=== PATIENT | male | born 1970 | race American Indian/Alaskan Native ===

== ENCOUNTER 2019-06-04 20:20 | Emergency (ER) | payer OTHER ==
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
[2019-06-04] MEDS ORDERED: KETOROLAC 30 MG/1 ML INJ IV ONE (21:12)
[2019-06-04] MEDS ORDERED: ACETAMINOPHEN 500 MG TAB PO ONE (21:13)
[2019-06-04 22:50] VITALS: BP 154/86
== END 2019-06-04 22:23 | disposition home or self-care (01) ==
LOC: EDBD → ED 20:20
DX: M54.5 Low back pain (principal); W30.81XA Contact with agricultural transport vehicle in stationary use, initial encounter; Y93.89 Activity, other specified; Y92.410 Unspecified street and highway as the place of occurrence of the external cause; Y99.8 Other external cause status
CPT/HCPCS: 96374; 99282; J1885